=== PATIENT | male | born 1990 | race Caucasian/White ===

== ENCOUNTER 2016-12-08 03:27 | Emergency (ER) | payer MEDICAID ==
--- NOTE | 2016-12-08 03:32 | EDPHY ---
H & P Time Seen by Provider: 12/08/16 03:28 HPI/ROS: CHIEF COMPLAINT: Intoxication HISTORY OF PRESENT ILLNESS: The patient is a 26-year-old man with a history of schizoaffective disorder and polysubstance abuse who admits to recent alcohol and marijuana ingestion. He was found intoxicated this evening and taken to the [facility]. There he had trouble answering questions and seemed lethargic. They sent him here for clearance. The patient here is ambulatory and has no complaints. He is awake and answering questions appropriately. REVIEW OF SYSTEMS: Constitutional: denies: chills, fever, recent illness, recent injury EENTM: denies: blurred vision, double vision, nose congestion Respiratory: denies: cough, shortness of breath Cardiac: denies: chest pain, irregular heart rate, lightheadedness, palpitations Gastrointestinal/Abdominal: denies: abdominal pain, diarrhea, nausea, vomiting, blood streaked stools Genitourinary: denies: dysuria, frequency, hematuria, pain Musculoskeletal: denies: joint pain, muscle pain Skin: denies: lesions, rash, jaundice, bruising Neurological: denies: headache, numbness, paresthesia, tingling, dizziness, weakness Hematologic/Lymphatic: denies: blood clots, easy bleeding, easy bruising Immunologic/allergic: denies: HIV/AIDS, transplant EXAM: GENERAL: Slightly disheveled HEAD: Atraumatic, normocephalic. EYES: Pupils equal round and reactive to light, extraocular movements intact, sclera anicteric, conjunctiva are normal. ENT: TMs normal, nares patent, oropharynx clear without exudates. Moist mucous membranes. NECK: Normal range of motion, supple without lymphadenopathy or JVD. LUNGS: Breath sounds clear to auscultation bilaterally and equal. No wheezes rales or rhonchi. HEART: Regular rate and rhythm without murmurs, rubs or gallops. ABDOMEN: Soft, nontender, normoactive bowel sounds. No guarding, no rebound. No masses appreciated. BACK: No CVA tenderness, no spinal tenderness, step-offs or deformities EXTREMITIES: Normal range of motion, no pitting or edema. No clubbing or cyanosis. NEUROLOGICAL: Cranial nerves II through XII grossly intact. Normal speech, normal gait. 5/5 strength, normal movement in all extremities, normal sensation PSYCH: Normal mood, normal affect. SKIN: Warm, dry, normal turgor, no visible rashes or lesions. Source: Patient, EMS Exam Limitations: Intoxication - Medical/Surgical History Hx Asthma: No Hx Chronic Respiratory Disease: No Hx Diabetes: No Hx Cardiac Disease: No Hx Renal Disease: No Hx Cirrhosis: No Hx Alcoholism: No Hx HIV/AIDS: No Hx Splenectomy or Spleen Trauma: No Other PMH: PMH: schizoaffective, anxiety, PTSD, Bipolar, cigarrettes, marijuana use. - Family History Significant Family History: No pertinent family hx - Social History Smoking Status: Current every day smoker Alcohol Use: Sober Drug Use: None Constitutional: Initial Vital Signs Temperature (C) 36.7 C 12/08/16 03:32 Heart Rate 82 12/08/16 03:32 Respiratory Rate 16 12/08/16 03:32 Blood Pressure 103/61 12/08/16 03:32 O2 Sat (%) 96 12/08/16 03:32 O2 Delivery Mode Room Air Allergies/Adverse Reactions: Penicillins Allergy (Intermediate, Verified 12/08/16 03:32) Rash Home Medications: Medication Instructions Recorded Neurontin 10/01/13 Wellbutrin 100mg (RX) 10/01/13 ARIPiprazole [Abilify 10 mg (RX)] 20 mg PO DAILY 01/29/14 Bupropion HCl [Wellbutrin Xl] 300 mg PO DAILY 01/29/14 Gabapentin [Neurontin 300 MG (RX)] 600 mg PO BID 01/29/14 Propranolol Sr [Inderal LA] 80 mg PO DAILY PRN 01/29/14 busPIRone [Buspar] 15 mg PO BID 01/29/14 Klonopin 11/29/14 LORazepam [Ativan] 04/28/15 Medical Decision Making ED Course/Re-evaluation: We discussed options. The patient would prefer to have his friends coming get him and take him home. He does not wish to go back to the recovery Center. We will discharge him at this time. He is clinically sober and ambulatory. 5:45 a.m. the patient could not obtain a ride home. He is sober clinically and it is daylight. We will discharge him. Differential Diagnosis: Partial list of the Differential diagnosis considered include but were not limited to; intoxication, polysubstance abuse, schizoaffective disorder and although unlikely based on the history and physical exam, I also considered head injury, infection. I discussed these differential diagnoses and the plan with the patient as well as the usual and expected course. The patient understands that the diagnosis is provisional and that in medicine we are not always correct and that further workup is often warranted. Usual and customary warnings were given. All of the patient's questions were answered. The patient was instructed to return to the emergency department should the symptoms at all worsen or return, otherwise to followup with the physician as we discussed. Departure - Departure Disposition: Home, Routine, Self-Care Clinical Impression: Polysubstance abuse Alcoholic intoxication Qualifiers: Complication of substance-induced condition: uncomplicated Qualified Code(s): F10.920 - Alcohol use, unspecified with intoxication, uncomplicated Condition: Fair Instructions: Alcohol Intoxication (ED), Polysubstance Abuse (ED) Referrals: [facility],. [Clinic] - As per Instructions
[2016-12-08 03:34] VITALS: RESP 16; O2SAT 96
[2016-12-08 05:57] VITALS: BP 109/67; PULSE 87; TEMP 98.2
== END 2016-12-08 05:57 | disposition home or self-care (01) ==
LOC: EDUNIT#
DX: F19.10 Other psychoactive substance abuse, uncomplicated (principal); F10.920 Alcohol use, unspecified with intoxication, uncomplicated; F17.210 Nicotine dependence, cigarettes, uncomplicated